=== PATIENT | male | born 1940 | race Caucasian/White ===

== ENCOUNTER → 2016-08-12 | Outpatient (CLI) | payer MEDICARE, BC ==
[2015-12-15 14:45] VITALS: BP 128/56
[~2016-08-12] MED LIST: ACET-1550 PO; ACET500T68 PO; AMLO10TA2 PO; ASPI-482 PO; ASPI81TA2 PO; CALC1TAB75 PO; DIPH25CA58 PO; FERR-26 PO; FLUO20CA8 PO; GLUC1TAB71 PO; HYDR-2762 PO; LISI40TA PO; LOVA20TA2 PO; LOVENOX SQ; MULT-404 PO; OMEG1CAP16 PO; OMEG1CAP38 PO; OMEP20CA9 PO; OXYC-323 PO; TRAM50TA PO; WARF2TAB7 PO; WARF5TAB7 PO; WARF7.5T6 PO
[2016-08-12 15:11] LABS: BILIRUBIN,URINE NEGATIVE (NEG); GLUCOSE,URINE NEGATIVE (NEG); NITRITE,URINE NEGATIVE (NEG); PROTEIN,URINE NEGATIVE (NEG-TRACE); UROBILINOGEN,URINE 0.2 mg/dL (0.2 mg/dL)
[2016-08-12 15:16] LABS: BASO # 0.1 x10^3/uL (0.0-0.2); BASO % 1 % (0-3); EOS % 8 % (0-3); HEMATOCRIT 39.2 % (39.0-53.0); HEMOGLOBIN 13.4 g/dL (13.0-17.5); LYMPH # 2.4 x10^3/uL (1.0-4.8); LYMPH % 28 % (24-48); MEAN CORPUSCULAR HEMOGLOBIN 33 pg (25-35); MEAN CORPUSCULAR HGB CONC 34 g/dL (31-37); MEAN CORPUSCULAR VOLUME 97 fL (79-100); MONO % 9 % (0-9); NEUT % 54 % (31-73); PLATELET COUNT 231 x10^3/uL (140-400); RED BLOOD COUNT 4.03 x10^6/uL (4.30-5.70); RED CELL DISTRIBUTION WIDTH 13.7 % (11.5-14.5); WHITE BLOOD COUNT 8.7 x10^3/uL (4.0-11.0)
--- NOTE | 2016-08-12 15:16 | EKG ---
[facility] [address] [place] [address] Test Date: 2016-08-12 Test Time: 15:18:53 Pat Name: COLE HARDY Department: Room: Gender: M Commercial Plumber: TINYVane : 1940 Requested By: SINDHU FOX Order Number: [id number] Reading MD: Елена Rodriguez Measurements Intervals [place] Rate: 53 P: 38 HI: 168 QRS: 5 QRSD: 78 T: 41 QT: 388 QTc: 366 Interpretive Statements SINUS RHYTHM ATRIAL PREMATURE COMPLEX(ES) OTHERWISE NORMAL ECG RI6.01 No previous ECG available for comparison Electronically Signed On 08-15-2016 12:37:23 CDT by Елена oRdriguez
[2016-08-12 15:33] LABS: INR 2.8 (0.8-1.1); PROTHROMBIN TIME PATIENT 27.4 SEC (11.7-14.0)
[2016-08-12 15:44] LABS: ALBUMIN 3.7 g/dL (3.4-5.0); CALCIUM 9.1 mg/dL (8.5-10.1); CREATININE 1.5 mg/dL (0.7-1.3); GFR 45.6; POTASSIUM 4.3 mmol/L (3.5-5.1)
[2016-08-12 15:46] LABS: BACTERIA,URINE 0 /HPF (0-FEW); RBC,URINE 0 /HPF (0-2); SQUAMOUS EPITHELIAL CELL,UR OCC /LPF; WBC,URINE RARE /HPF (0-4)
--- NOTE | 2016-08-12 16:21 | RAD ---
Indication preop. Anticipated shoulder surgery. PA and lateral views of the chest were obtained. Comparison is made to a study 08/14/2015. Heart size is unchanged. Pulmonary vasculature is normal. The lungs are clear of acute infiltrates. Significant pleural fluid is not present. There is no pneumothorax. A significant change when compared to the previous exam is not seen. IMPRESSION: No acute or focal process. No significant change.
== END | disposition home or self-care (01) ==
LOC: SURGPAT 14:10
PROVIDERS: ATTEND Orthopaedic Surgery Sports Medicine
DX: Z01.818 Encounter for other preprocedural examination (principal); M79.605 Pain in left leg; M19.011 Primary osteoarthritis, right shoulder
CPT/HCPCS: 36415; 71020; 80048; 81001; 82040; 85027; 85610; 85651; 85730; 87641; 93005

== ENCOUNTER 2016-08-26 08:17 | Inpatient (IN) | payer MEDICARE, BC ==
[~2016-08-26] VITALS: Ht 148.6 cm; Wt 111.1 kg
[~2016-08-26 08:17] MED LIST changes: +ASPI-630 PO; -ASPI81TA2 PO; +HYDROcodone/APAP 7.5/325MG 1 TAB TABLET PO PRN; +IV RINGERS,LACTATED 1000ML 1,000 ML IV SCH; +LIDOCAINE 1% 1 ML SYRINGE. ID PRN; +MELOXICAM 7.5 MG TABLET PO PRN; +MORPHINE SULFATE 5 MG, KETOROLAC TROMETHAMINE 30 MG, ROPIVacaine 0.5% PF 60 ML, EPINEPH... INT ART ONE; -OMEG1CAP16 PO; +OMEG1CAP27 PO; +VANCOMYCIN 1GM IVPB FOR OMNI 250 ML IV PRN
[2016-08-26] MEDS ORDERED: ROCURONIUM 50 MG/5 ML VIAL. ONE (08:31)
[2016-08-26] MEDS ORDERED: fentaNYL PF VIAL 100 MCG/2 ML VIAL ONE ×2 (08:31→09:11)
[2016-08-26] MEDS ORDERED: PROPOFOL 20 ML IV ONE (08:32)
[2016-08-26] MEDS ORDERED: DESFLURANE 61 TO 120 MINUTES IH ONE (08:32)
[2016-08-26] MEDS ORDERED: PHENYLEPHRINE 10 MG/ML VIAL. ONE (08:32)
[2016-08-26] MEDS ORDERED: LIDOCAINE 2% PF Vial for OR 5 ML VIAL. ONE (08:32)
[2016-08-26] MEDS ORDERED: ENOX40DI SQ (08:56)
[2016-08-26 09:08] VITALS: BP 158/81
[2016-08-26] MEDS ORDERED: DEXAMETHASONE SOD PHOS 20 MG/5 ML VIAL. ONE (09:10)
[2016-08-26] MEDS ORDERED: ROPIVacaine 0.5% PF 30 ML VIAL. ONE (09:11)
[2016-08-26] MEDS ORDERED: LIDOCAINE 2% 20 ML VIAL. ONE (09:11)
[2016-08-26] MEDS ORDERED: MIDAZOLAM HCL/PF 2 MG/2 ML VIAL. ONE (09:11)
[2016-08-26 09:36] LABS: INR 1.1 (0.8-1.1); PROTHROMBIN TIME PATIENT 13.4 SEC (11.7-14.0)
[2016-09-06] MEDS ORDERED: ACET-1550 PO (11:47)
[2016-09-06] MEDS ORDERED: GLUC-142 PO (11:47)
[2016-09-06] MEDS ORDERED: DIPH25CA58 PO (11:47)
[2016-09-06] MEDS ORDERED: WARF5TAB7 PO ×2 (11:47)
[2016-09-06] MEDS ORDERED: ACET500T68 PO (11:47)
--- NOTE | 2016-10-08 18:43 | SSS ---
ADMIT DATE: 08/26/2016 The patient was admitted to undergo total shoulder arthroplasty; however, due to the fact that the components were not available at our institution at that time, I discussed with him that we were not be able to perform a surgery and he agreed to this. Therefore, the surgery was re-scheduled for a later date when we are able to coordinate with the vendor on prior to availability. SINDHU FOX MD DR: MAYURI/[place] JOB#: [id number] / [id number]
== END 2016-08-26 09:53 | disposition home or self-care (01) | DRG 554 ==
LOC: EDSEX → OPSVCIP 08:17
PROVIDERS: ADMIT Orthopaedic Surgery Sports Medicine; ATTEND Orthopaedic Surgery Sports Medicine
DX: M19.011 Primary osteoarthritis, right shoulder (principal); Z53.9 Procedure and treatment not carried out, unspecified reason; Z88.8 Allergy status to other drugs, medicaments and biological substances; Z88.0 Allergy status to penicillin; Z88.5 Allergy status to narcotic agent
CPT/HCPCS: 36415; 85610; 85730; 86850; 86900; 86901; J0171; J1100; J1885; J2001; J2250; J2270; J2704; J2795; J3010; J7120

== ENCOUNTER 2016-09-09 10:43 | Inpatient (IN) | payer MEDICARE, BC ==
[2016-09-09] VITALS (7 sets, daily range): BP systolic 126–151; BP diastolic 54–74
[~2016-09-09] VITALS: Ht 172.7 cm; Wt 111.1 kg
[~2016-09-09 10:43] MED LIST changes: +ACETAMINOPHEN 500 MG TABLET PO PRN; +CLINDAMYCIN 600MG PREMIX 50 ML IV ONE; +ENOX40DI SQ; +GLUC-142 PO; -HYDROcodone/APAP 7.5/325MG 1 TAB TABLET PO PRN; +HYDROmorphone 2 MG/ML VIAL IV PRN; -IV RINGERS,LACTATED 1000ML 1,000 ML IV SCH; -MELOXICAM 7.5 MG TABLET PO PRN; +MEPERIDINE PF 25 MG/ML VIAL. IV PRN; +MIDAZOLAM HCL/PF 2 MG/2 ML VIAL. IV PRN; -MORPHINE SULFATE 5 MG, KETOROLAC TROMETHAMINE 30 MG, ROPIVacaine 0.5% PF 60 ML, EPINEPH... INT ART ONE; +PROCHLORPERAZINE 10 MG/2 ML VIAL. IV PRN; +TV=100ml MORPHINE 5 MG, KETOROLAC 30 MG, ROPIVacaine 0.5% PF 60 ML, EPINEPH... INT ART ONE; -VANCOMYCIN 1GM IVPB FOR OMNI 250 ML IV PRN; +diphenhydrAMINE 50 MG/ML VIAL IV PRN; +fentaNYL PF VIAL 100 MCG/2 ML VIAL IV PRN
[2016-09-09] MEDS ORDERED: PROPOFOL 20 ML IV ONE ×2 (10:49→14:26)
[2016-09-09] MEDS ORDERED: ONDANSETRON PF 4 MG/2 ML VIAL. ONE (10:49)
[2016-09-09] MEDS ORDERED: LIDOCAINE 2% PF Vial for OR 5 ML VIAL. ONE (10:49)
[2016-09-09] MEDS ORDERED: FAMOTIDINE 20 MG/2 ML VIAL ONE (10:49)
[2016-09-09] MEDS ORDERED: CALCIUM CARBONATE 500 MG TAB.CHEW PO PRN (11:00)
[2016-09-09] MEDS ORDERED: traMADol 50 MG TABLET PO PRN ×2 (11:00)
[2016-09-09] MEDS ORDERED: oxyCODONE/APAP 7.5/325 1 TAB TABLET PO PRN (11:00)
[2016-09-09] MEDS ORDERED: oxyCODONE/APAP 5/325 1 TAB TABLET PO PRN (11:00)
[2016-09-09] MEDS ORDERED: 0.9 % SODIUM CHLORIDE 10 ML DISP.SYRIN. IV PRN (11:00)
[2016-09-09] MEDS ORDERED: ACETAMINOPHEN 325 MG TABLET. PO PRN (11:00)
[2016-09-09] MEDS ORDERED: HYDROcodone/APAP 10/325 1 TAB TABLET PO PRN (11:00)
[2016-09-09] MEDS ORDERED: DEXTROSE 50% 25 GM / 50ML DISP.SYRIN. IV PRN (11:00)
[2016-09-09] MEDS ORDERED: ZOLPIDEM 5 MG TABLET. PO PRN (11:00)
[2016-09-09] MEDS ORDERED: BUPIVACAINE MPF 0.5% 30 ML VIAL. ONE (11:00)
[2016-09-09] MEDS ORDERED: PROCHLORPERAZINE 5 MG TABLET. PO PRN (11:00)
[2016-09-09] MEDS ORDERED: METOCLOPRAMIDE HCL 10 MG/2 ML VIAL. IV PRN (11:00)
[2016-09-09] MEDS ORDERED: VANCOMYCIN 1GM IVPB FOR OMNI 250 ML ONE (11:04)
[2016-09-09] MEDS ORDERED: VANCOMYCIN 1GM IVPB FOR OMNI. ONE (11:04)
[2016-09-09] MEDS ORDERED: MELOXICAM 7.5 MG TABLET PO ONE (11:04)
--- NOTE | 2016-09-09 11:11 | PDOC4 ---
Operative Note Operative Note Date of surgery 09/09/2016 Surgeon George Stock. Tracy Lua Anesthesia Gen. plus regional Preoperative diagnosis advanced right glenohumeral degenerative joint disease Postoperative diagnosis same; advanced rotator cuff tear Procedure performed right reverse total shoulder arthroplasty Components inserted DePuy delta extend metaglene Global unite porocoat standard stem, size 10 Delta extend size 1 epiphysis, eccentric Delta extend size 38 glenosphere Delta extend 38 +6 PE cup Estimated blood loss 300 mL Complications none Reason for procedure held is a very pleasant 76-year-old with severe and progressive right shoulder pain that was consistent with his above preoperative diagnosis on clinical and radiographic examination. He had tried and failed conservative therapy such as anti-inflammatories, rehabilitation, and intra- articular steroids. Despite these, his pain was still progressive and interfering with his activities of daily living. Therefore, we had a discussion of the risks, benefits, and alternatives to the above surgery and he elected to proceed. Description of procedure: Patient was greeted in the preoperative area by myself for the correct extremity was marked and verified. Was taken back to the operative suite and his antibiotics were started and row. Once in the OR he was transferred gently supine to the OR table. He had a regional nerve block placed by the anesthesiology team prior to coming back. Once on the OR table, he had successful induction of general anesthesia. We then set him up in a beachchair position and maintained his C-spine in a neutral position and had a large pad under his legs. He was secured to the bed. We then proceeded to prep and drape in her usual sterile fashion and conducted our standard preoperative timeout. I then palpated and marked surface anatomy and dominick a line from a standard deltopectoral skin incision. I incised skin with a scalpel and dissected subcutaneous tissue with electrocautery and Metzenbaums. Identified the deltopectoral interval and cephalic vein and only mobilize this laterally. Identified the clavipectoral fascia and incised this in line with the skin incision. I then placed my retractor. I then palpated for the biceps tendon and incised the bicipital sheath up into the rotator interval. His biceps had already ruptured and was scarred in place. I then proceeded to take down the subscapularis and placed tag stitches in it with electrocautery and progressive external rotation. I took time to remove the osteophytes anteriorly inferiorly and a little posteriorly as much as I was able to. I then inspected the humeral head and rotator cuff and felt the cuff tear and retraction nonamenable to a standard total shoulder procedure with a reverse.. I then gained entry to the humeral canal with the entry awl on hand power followed by sequential reaming until first bite.. I then placed my proximal humeral cut guide and pinned in position. I then made my proximal humeral cut and delivered the bone remnant from the operative field. This was sent to the back table for sizing. I next used the reamer in an eccentric position for the reverse body. After this I placed the broach and gently impacted in position. I was happy with my retroversion. I then removed the broach and directed my attention to placing my Fukuda and Bankart retractors and then excised the labrum. I released the capsule circumferentially around the glenoid and had good mobility. After this, I used my sizing guide to advance a pin and then reamed on hand power until had a punctate bleeding bony bed, I then drilled over this for my central peg. I did use the peripheral reamer as well. I then irrigated out the operative field. I then impacted my baseplate in place and secured it with locking screws and a nonlocking screw. I then redirected my attention to the proximal humerus after removing my glenoid retractors, I placed Darrach retractors. I then placed my trial stem. I reduced the shoulder after removing the retractors and tested range of motion and stability which I was happy with. After this, my stem was assembled on the back table and impacted in position. I then impacted and screwed the Glenosphere and position and then trialed various polyethylene insert sizes and felt the above combination gave the best range of motion and stability. I was easily able to reapproximate the subscapularis. I did this after drill holes were placed through the proximal humerus region and #2 Ethibond was shuttled around the humeral stem before I fully seated it. I then used these sutures to reapproximate my subscapularis and supplemented this at the interval with #2 Ethibond in a simple fashion. I then irrigated out the operative field again and placed my periarticular injection to the phil- incisional areas. I then close the deltopectoral interval with running 0 Vicryl. Inverted interrupted 20 was used for subcutaneous tissue and running 4- 0 Monocryl in a subcuticular fashion was used for the skin. Prior to accomplishing wound closure all culture were reported as correct 2. Patient tolerated surgery well. At the conclusion surgery was laid gently supine and transferred supine after the shoulder was cleansed and dried and the sling was applied. He was then taken to PACU in a stable and extubated condition. Postoperative plan is to admit him to the joint center. He'll be nonweightbearing. He will receive IV antibiotics. We will restart him on his home Coumadin and maintain him on Lovenox until he is therapeutic. SINDHU FOX II, MD Sep 09, 2016 11:11
[2016-09-09] MEDS ORDERED: ROCURONIUM 50 MG/5 ML VIAL. ONE (11:13)
[2016-09-09] MEDS ORDERED: fentaNYL PF VIAL 100 MCG/2 ML VIAL ONE (11:13)
[2016-09-09] MEDS: IV RINGERS,LACTATED 1000ML 1,000 ML IV SCH ×2 (11:15→13:00)
[2016-09-09 11:37] LABS: INR 1.2 (0.8-1.1)
[2016-09-09] MEDS ORDERED: GLYCOPYRROLATE 1 MG/5 ML VIAL. ONE (12:06)
[2016-09-09] MEDS ORDERED: ePHEDrine PF IN SALINE 50 MG/5 ML DISP.SYRIN IV ONE (12:07)
[2016-09-09] MEDS ORDERED: VASOPRESSIN 20 UNIT/ML VIAL. ONE (12:09)
[2016-09-09] MEDS ORDERED: VECURONIUM BOLUS 10 MG VIAL. IV ONE (13:25)
[2016-09-09] MEDS ORDERED: NEOSTIGMINE METHYLSULFATE 5 MG/5 ML SYRINGE. ONE (14:08)
[2016-09-09] MEDS ORDERED: SEVOFLURANE > 120 MINUTES. IH ONE (14:20)
--- NOTE | 2016-09-09 15:21 | RAD ---
Portable right shoulder, 2 views, 09/09/2016: History: Postop evaluation A reversed shoulder arthroplasty is in place. Several small periarticular calcifications or bone fragments are present. There is extensive hypertrophic degenerative change at the right acromioclavicular joint. There is no evidence of a retained surgical instrument, needle or radiopaque sponge on these 2 views. There is mild linear atelectasis in the right lung base.
[2016-09-09] MEDS: IV DEXTROSE 5 %-0.45 % NACL 1,000 ML IV SCH (17:17)
[2016-09-09] MEDS: CALCIUM CARB/VIT D3 500/200 TABLET. PO SCH (17:17)
[2016-09-09] MEDS: FERROUS SULFATE 325 MG TABLET. PO SCH (17:17)
[2016-09-09] MEDS ORDERED: WARFARIN 7.5 MG TABLET. PO ONE (17:30)
[2016-09-09] MEDS: diphenhydrAMINE HCL 25 MG CAPSULE PO SCH (20:54)
[2016-09-09] MEDS: ATORVASTATIN CALCIUM 10 MG TABLET. PO SCH (20:54)
[2016-09-09] MEDS: ENOXAPARIN 40 MG/0.4 ML SYRINGE. SQ SCH (20:55)
[2016-09-10] MEDS ORDERED: VANCOMYCIN 1 GM in IV NORMAL SALINE 250ML 250 ML IV ONE ×2
[2016-09-10 03:00] VITALS: BP 126/66
[2016-09-10] MEDS: IV DEXTROSE 5 %-0.45 % NACL 1,000 ML IV SCH ×3 (03:00→23:00)
[2016-09-10] MEDS: HYDROcodone/APAP 7.5/325MG 1 TAB TABLET PO PRN ×3 (04:07→17:12)
[2016-09-10] MEDS ORDERED: MAGNESIUM HYDROXIDE 2,400 MG/30 ML ORAL.SUSP. PO PRN (06:00)
[2016-09-10 06:51] VITALS: BP 131/66
[2016-09-10] MEDS: PANTOPRAZOLE 40 MG TABLET.DR. PO SCH (07:17)
[2016-09-10] MEDS: FERROUS SULFATE 325 MG TABLET. PO SCH ×2 (08:06→17:08)
[2016-09-10] MEDS: ASPIRIN ENTERIC COATED 81 MG TABLET.DR. PO SCH (08:06)
[2016-09-10] MEDS: SENNOSIDES/DOCUSATE 8.6/50MG TABLET. PO SCH (08:06)
[2016-09-10] MEDS: MULTIVITAMIN with MINERAL TABLET. PO SCH (08:06)
[2016-09-10] MEDS: FLUoxetine HCL 20 MG CAPSULE PO SCH (08:06)
[2016-09-10] MEDS: CALCIUM CARB/VIT D3 500/200 TABLET. PO SCH ×2 (08:06→17:08)
[2016-09-10] MEDS: ENOXAPARIN 40 MG/0.4 ML SYRINGE. SQ SCH ×2 (08:08→20:59)
[2016-09-10] MEDS: amLODIPine BESYLATE 10 MG TABLET PO SCH (08:10)
[2016-09-10] MEDS ORDERED: ENOXAPARIN 40 MG/0.4 ML SYRINGE. SQ SCH (09:00)
[2016-09-10] MEDS ORDERED: MULTIVITAMIN PO SCH (09:00)
--- NOTE | 2016-09-10 09:10 | PDOC ---
ORTHO PROGRESS NOTES Subjective Fingers "tingly", pain tolerable. Some urinary retention, improving. Vitals Vital Signs Date Time Temp Pulse Resp B/P (MAP) Pulse Ox O2 Delivery O2 Flow Rate FiO2 09/10/16 08:10 91 158/65 09/10/16 07:34 Room Air 09/10/16 06:51 98.6 20 97 98.6 09/09/16 17:50 2.0 Labs Laboratory Tests Test 09/09/16 11:09 09/09/16 14:55 09/09/16 17:11 09/09/16 20:41 Prothrombin Time 14.0 SEC (11.7-14.0) Prothromb Time International Ratio 1.2 (0.8-1.1) Activated Partial Thromboplast Time 35 SEC (24-38) Glucose (Fingerstick) 127 mg/dL (70-99) 148 mg/dL (70-99) 136 mg/dL (70-99) Test 09/10/16 06:36 Glucose (Fingerstick) 155 mg/dL (70-99) Laboratory Tests Test 09/09/16 11:09 09/09/16 14:55 09/09/16 17:11 09/09/16 20:41 Prothrombin Time 14.0 SEC (11.7-14.0) Prothromb Time International Ratio 1.2 (0.8-1.1) Activated Partial Thromboplast Time 35 SEC (24-38) Glucose (Fingerstick) 127 mg/dL (70-99) 148 mg/dL (70-99) 136 mg/dL (70-99) Test 09/10/16 06:36 Glucose (Fingerstick) 155 mg/dL (70-99) Notes A and A walking in hernandez motor intact m/r/u/a Assessment and Plan PT/OT coumadin and Lovenox has f/u at [place] friday for SINDHU Vazquez II, MD Sep 10, 2016 09:10
[2016-09-10 09:30] LABS: HEMATOCRIT 29.8 % (39.0-53.0); HEMOGLOBIN 10.5 g/dL (13.0-17.5)
[2016-09-10 12:47] LABS: INR 1.2 (0.8-1.1); PROTHROMBIN TIME PATIENT 14.1 SEC (11.7-14.0)
[2016-09-10] MEDS: TAMSULOSIN 0.4 MG CAP.ER.24H. PO SCH (13:24)
[2016-09-10] MEDS ORDERED: BISACODYL 10 MG SUPP.RECT. PR PRN (16:00)
[2016-09-10] MEDS ORDERED: WARFARIN 7.5 MG TABLET. PO ONE (16:00)
[2016-09-10 18:02] VITALS: BP 136/72
[2016-09-10] MEDS: ATORVASTATIN CALCIUM 10 MG TABLET. PO SCH (20:58)
[2016-09-10] MEDS: diphenhydrAMINE HCL 25 MG CAPSULE PO SCH (20:59)
[2016-09-11 06:00] VITALS: BP 130/56
[2016-09-11] MEDS: PANTOPRAZOLE 40 MG TABLET.DR. PO SCH (07:18)
[2016-09-11 07:34] LABS: INR 1.4 (0.8-1.1)
--- NOTE | 2016-09-11 08:42 | DISCH ---
DISCHARGE INSTRUCTIONS Condition on Discharge Condition on Discharge: Stable Activity After Discharge Activity Instructions for Disc: Other, see below Other activity instructions: arm to remain in sling Bathing Instructions: Shower-keep dressing dry Weight Bearing Status after Di: Non weight bearing Diet after Discharge Diet after Discharge: Regular Wound Incision Care Wound/Incision Care: Ice to area for comfort, Keep wound/cast CDI, Do not change dressing Contacting the DRAngela after DC Call your doctor for: Concerns you may have Follow-Up Follow up with: Haylie in 2wks Warfarin Follow-Up Warfarin Follow UP: Friday at [place] SINDHU FOX II, MD Sep 11, 2016 08:41
--- NOTE | 2016-09-11 08:43 | PDOC ---
ORTHO PROGRESS NOTES Subjective Pain doing well, some N, but tolerating diet. Vitals Vital Signs Date Time Temp Pulse Resp B/P (MAP) Pulse Ox O2 Delivery O2 Flow Rate FiO2 09/11/16 07:50 Room Air 09/11/16 06:00 98.6 76 20 130/56 (80) 94 98.6 09/10/16 19:49 2.0 Labs Laboratory Tests Test 09/09/16 11:09 09/09/16 14:55 09/09/16 17:11 09/09/16 20:41 Prothrombin Time 14.0 SEC (11.7-14.0) Prothromb Time International Ratio 1.2 (0.8-1.1) Activated Partial Thromboplast Time 35 SEC (24-38) Glucose (Fingerstick) 127 mg/dL (70-99) 148 mg/dL (70-99) 136 mg/dL (70-99) Test 09/10/16 06:36 09/10/16 08:43 09/10/16 16:55 09/10/16 20:46 Glucose (Fingerstick) 155 mg/dL (70-99) 118 mg/dL (70-99) 122 mg/dL (70-99) Hemoglobin 10.5 g/dL (13.0-17.5) Hematocrit 29.8 % (39.0-53.0) Mean Corpuscular Hemoglobin Concent 35 g/dL (31-37) Prothrombin Time 14.1 SEC (11.7-14.0) Prothromb Time International Ratio 1.2 (0.8-1.1) Test 09/11/16 06:30 09/11/16 06:55 Glucose (Fingerstick) 105 mg/dL (70-99) Prothrombin Time 16.0 SEC (11.7-14.0) Prothromb Time International Ratio 1.4 (0.8-1.1) Laboratory Tests Test 09/10/16 08:43 09/10/16 16:55 09/10/16 20:46 09/11/16 06:30 Hemoglobin 10.5 g/dL (13.0-17.5) Hematocrit 29.8 % (39.0-53.0) Mean Corpuscular Hemoglobin Concent 35 g/dL (31-37) Prothrombin Time 14.1 SEC (11.7-14.0) Prothromb Time International Ratio 1.2 (0.8-1.1) Glucose (Fingerstick) 118 mg/dL (70-99) 122 mg/dL (70-99) 105 mg/dL (70-99) Test 09/11/16 06:55 Prothrombin Time 16.0 SEC (11.7-14.0) Prothromb Time International Ratio 1.4 (0.8-1.1) Notes A and A dressing dry RUE in sling remains NVI Assessment and Plan ok to go home f/u with myself in 2wks, hold off on formal PT until then f/u at [place] friday SINDHU FOX II, MD Sep 11, 2016 08:43
[2016-09-11] MEDS: ENOXAPARIN 40 MG/0.4 ML SYRINGE. SQ SCH (08:52)
[2016-09-11] MEDS: ASPIRIN ENTERIC COATED 81 MG TABLET.DR. PO SCH (08:53)
[2016-09-11] MEDS: TAMSULOSIN 0.4 MG CAP.ER.24H. PO SCH (08:53)
[2016-09-11] MEDS: MULTIVITAMIN with MINERAL TABLET. PO SCH (08:55)
[2016-09-11] MEDS: SENNOSIDES/DOCUSATE 8.6/50MG TABLET. PO SCH (08:55)
[2016-09-11] MEDS: amLODIPine BESYLATE 10 MG TABLET PO SCH (08:55)
[2016-09-11] MEDS: FLUoxetine HCL 20 MG CAPSULE PO SCH (08:55)
[2016-09-11] MEDS: FERROUS SULFATE 325 MG TABLET. PO SCH (08:55)
[2016-09-11] MEDS: CALCIUM CARB/VIT D3 500/200 TABLET. PO SCH (08:55)
[2016-09-11] MEDS: HYDROcodone/APAP 7.5/325MG 1 TAB TABLET PO PRN (08:56)
[2016-09-11] MEDS: IV DEXTROSE 5 %-0.45 % NACL 1,000 ML IV SCH (09:00)
[2016-09-11 10:12] VITALS: BP 146/71
[2016-09-11 12:50] LABS: HEMATOCRIT 33.1 % (39.0-53.0); HEMOGLOBIN 10.9 g/dL (13.0-17.5)
--- NOTE | 2016-09-11 13:25 | PDOC3 ---
Discharge Summary Visit Information Date of Admission: Sep 09, 2016 Date of Discharge: Sep 11, 2016 Admitting Diagnosis: advanced right shoulder rotator cuff tear arthropathy Brief Hospital Course Allergies Allergies Coded Allergies Type Severity Reaction Last Updated Verified Penicillins Allergy Intermediate Swelling 09/09/16 Yes chlorhexidine Allergy Intermediate CLOTHS; RASH. TOLERATES SPONGES 09/09/16 No erythromycin base Adverse Reaction Intermediate Nausea and Vomiting 09/09/16 Yes morphine Adverse Reaction Intermediate nausea/vomiting 09/09/16 Yes tolmetin Adverse Reaction Intermediate 09/09/16 Yes Vital Signs Vital Signs Date Time Temp Pulse Resp B/P (MAP) Pulse Ox O2 Delivery O2 Flow Rate FiO2 09/11/16 10:12 99.1 87 18 146/71 (96) 94 Room Air 99.1 09/10/16 19:49 2.0 Lab Results Laboratory Tests Test 09/09/16 14:55 09/09/16 17:11 09/09/16 20:41 09/10/16 06:36 Glucose (Fingerstick) 127 mg/dL (70-99) 148 mg/dL (70-99) 136 mg/dL (70-99) 155 mg/dL (70-99) Test 09/10/16 08:43 09/10/16 16:55 09/10/16 20:46 09/11/16 06:30 Hemoglobin 10.5 g/dL (13.0-17.5) Hematocrit 29.8 % (39.0-53.0) Mean Corpuscular Hemoglobin Concent 35 g/dL (31-37) Prothrombin Time 14.1 SEC (11.7-14.0) Prothromb Time International Ratio 1.2 (0.8-1.1) Glucose (Fingerstick) 118 mg/dL (70-99) 122 mg/dL (70-99) 105 mg/dL (70-99) Test 09/11/16 06:55 Hemoglobin 10.9 g/dL (13.0-17.5) Hematocrit 33.1 % (39.0-53.0) Mean Corpuscular Hemoglobin Concent 33 g/dL (31-37) Prothrombin Time 16.0 SEC (11.7-14.0) Prothromb Time International Ratio 1.4 (0.8-1.1) Laboratory Tests Test 09/10/16 16:55 09/10/16 20:46 09/11/16 06:30 09/11/16 06:55 Glucose (Fingerstick) 118 mg/dL (70-99) 122 mg/dL (70-99) 105 mg/dL (70-99) Hemoglobin 10.9 g/dL (13.0-17.5) Hematocrit 33.1 % (39.0-53.0) Mean Corpuscular Hemoglobin Concent 33 g/dL (31-37) Prothrombin Time 16.0 SEC (11.7-14.0) Prothromb Time International Ratio 1.4 (0.8-1.1) Brief Hospital Course Mr. Dockery is a 76 old male who presented to my outpatient orthopedic surgery clinic with complaints of severe and progressive shoulder pain and interfering with his activities of daily living and loss of function especially range of motion. Clinical and radiographic workup were consistent with advanced glenohumeral degenerative joint disease and we had a discussion proceeding with arthroplasty based on the status of the cuff. He elected to proceed. He tolerated the reverse total shoulder replacement well and recovered well from anesthesia and the PACU. He is taken up to the joint center for care and observation as well as receive his DVT prophylaxis and antibiotic prophylaxis. We restarted him on his home dose of Coumadin and maintain him on his twice a day Lovenox bridge. His nerve block wore off but gave him good initial pain relief and after that his pain was controlled on oral pain medicine. He had some nausea, but was tolerating a regular diet. He is having normal bowel and bladder function. He remained afebrile and hemodynamically stable throughout his hospitalization. He made good progress with physical and occupational therapy and was maintaining his activities of daily living well Discharge Information Condition at Discharge: Stable Follow Up: Weeks Disposition/Orders: D/C to Home Scheduled Acetaminophen/Diphenhydramine (Acetaminophen-Diphenhyd 500-25), 1 EACH PO HS, ( Reported) Amlodipine Besylate (Amlodipine Besylate), 10 MG PO DAILY, (Reported) Aspirin (Aspir 81), 1 TAB PO DAILY, (Reported) Calcium Carbonate/Vitamin D3 (Calcium 600 + Vit D 200 Tablet), 1 EACH PO BID, ( Reported) Diphenhydramine Hcl (Benadryl), 25 MG PO HS, (Reported) Enoxaparin Sodium (Lovenox), 0.4 ML SQ DAILY, (Reported) Fluoxetine Hcl (Fluoxetine Hcl), 20 MG PO DAILY, (Reported) Glucosamine/D3/Boswellia Susannah (Osteo Bi-Flex Tablet), 1 EACH PO DAILY, ( Reported) Lovastatin (Lovastatin), 5 MG PO HS, (Reported) Multivitamin (Men's Multi-Vitamin), 1 EACH PO DAILY, (Reported) Hobson-3 Fatty Acids/Fish Oil (Fish Oil 1,000 Mg Softgel), 1 EACH PO BID, ( Reported) Omeprazole (Omeprazole), 20 MG PO DAILY, (Reported) Warfarin Sodium (Warfarin Sodium), 7.5 MG PO QTUTHSASU, (Reported) Warfarin Sodium (Warfarin Sodium), 5 MG PO QMWF, (Reported) Discontinued Medications Acetaminophen (Acetaminophen), 1,000 MG PO, (Reported) Diphenhydramine Hcl (Benadryl), 1 CAP PO QHS, (Reported) Lisinopril (Lisinopril), 40 MG PO DAILY, (Reported) Tramadol Hcl (Tramadol Hcl), 50 MG PO Q6H PRN for PAIN, (Reported) Patient Instructions Patient Instructions He is to be discharged, nonweightbearing right upper extremity. Right upper extremity is to remain in the sling. He is to work on gentle active assisted range of motion exercises as instructed to amount he was inpatient. He will maintain his Coumadin and Lovenox twice a day, [facility] We will see him back in 2 weeks in my outpatient clinic, sooner should a problem arise. SINDHU FOX II, MD Sep 11, 2016 13:25
--- NOTE | 2016-09-13 13:43 | PATHOLOGY ---
PATHOLOGY REPORT * * * * * * * * FINAL DIAGNOSIS: Humeral head and separate segments of bone, right total shoulder arthroplasty: - Advanced degenerative arthritis. (JPM:pit; 09/13/2016) REPORT ELECTRONICALLY SIGNED BY: Henry Pierce M.D. DATE/TIME: 09/13/2016 13:42 * * * * * * * * GROSS PATHOLOGY: The specimen is received in formalin labeled "Cole Castillo Jr., right shoulder tissue was ". Received is a dome-shaped segment of light vargas bone measuring 5.6 x 4.8 x 2.2 cm in greatest dimensions. The articulating surface is pale vargas to light vargas in appearance with evidence of eburnation. The specimen is submitted representatively in cassette A1, following decalcification. Also received within the specimen container are additional fragments of light vargas bone measuring 5.9 x 4.2 x 0.9 cm in aggregate dimensions. Sections are not submitted. (CAA; 09/12/2016) INITIAL CPT CODE(S): A; 19682, 27550 Professional services performed [place] [email or web address] [place] [address] Technical services performed by [email or web address] at [address] [place] [address] [address], [place] [address]. SPECIMEN(S) RECEIVED: A.Right shoulder tissue CLINICAL HISTORY: Right shoulder OA PATIENT: COLE CASTILLO JR /AGE: 5 1940 (Age: 76) PATIENT #: [id number] ALT CASE #: SPECIMEN COLLECTION DATE: 09/09/2016 SPECIMEN RECEIVED DATE: 09/11/2016 [facility] - [address] [place] [address] - PHONE: [phone] * * * END OF REPORT * * *
== END 2016-09-11 10:25 | disposition home or self-care (01) | DRG 483 ==
LOC: OPSVCIP 10:43 → 4 SOUTHEST 15:50
PROVIDERS: ADMIT Orthopaedic Surgery Sports Medicine; ATTEND Orthopaedic Surgery Sports Medicine
PROC: 0RRJ00Z Replacement of Right Shoulder Joint with Reverse Ball and Socket Synthetic Substitute, Open Approach (ICD-10-PCS; principal; 2016-09-09 12:15)
DX: M19.011 Primary osteoarthritis, right shoulder (principal); M75.101 Unspecified rotator cuff tear or rupture of right shoulder, not specified as traumatic; R33.9 Retention of urine, unspecified; Z88.1 Allergy status to other antibiotic agents; Z88.5 Allergy status to narcotic agent; Z88.0 Allergy status to penicillin; Z88.8 Allergy status to other drugs, medicaments and biological substances
CPT/HCPCS: 36415; 73030; 82962; 85014; 85018; 85610; 85730; 86850; 86900; 86901; A4215; J0171; J1650; J1885; J2270; J2405; J2704; J2710; J2765; J2795; J3010; J3370; J3490; J7030; J7050; J7120; Q0163; Q0164; S0028; 97110; 97116; 97530; 97535; C1769

== ENCOUNTER 2017-09-14 11:09 | Emergency (ER) | payer MEDICARE, BC ==
[2017-09-14 11:38] LABS: ADD MAN DIFF? NO
[2017-09-14 11:53] LABS: ANION GAP 4 (6-14); BLOOD UREA NITROGEN 23 mg/dL (8-26); BUN/CREATININE RATIO 14 (6-20); CALCIUM 9.3 mg/dL (8.5-10.1); CARBON DIOXIDE 29 mmol/L (21-32); CHLORIDE 102 mmol/L (98-107); CREATININE 1.6 mg/dL (0.7-1.3); GFR 42.2; GLUCOSE 163 mg/dL (70-99); POTASSIUM 4.2 mmol/L (3.5-5.1); SODIUM 135 mmol/L (136-145)
[2017-09-14 11:57] LABS: BASO # 0.1 x10^3/uL (0.0-0.2); BASO % 1 % (0-3); EOS # 0.3 x10^3/uL (0.0-0.7); EOS % 5 % (0-3); HEMATOCRIT 38.4 % (39.0-53.0); HEMOGLOBIN 13.1 g/dL (13.0-17.5); LYMPH # 1.6 x10^3/uL (1.0-4.8); LYMPH % 26 % (24-48); MEAN CORPUSCULAR HEMOGLOBIN 33 pg (25-35); MEAN CORPUSCULAR HGB CONC 34 g/dL (31-37); MEAN CORPUSCULAR VOLUME 96 fL (79-100); MONO # 0.3 x10^3/uL (0.0-1.1); MONO % 6 % (0-9); NEUT # 3.9 x10^3uL (1.8-7.7); NEUT % 63 % (31-73); PLATELET COUNT 208 x10^3/uL (140-400); RED BLOOD COUNT 3.99 x10^6/uL (4.30-5.70); WHITE BLOOD COUNT 6.1 x10^3/uL (4.0-11.0)
[2017-09-14 11:58] LABS: ALBUMIN 3.5 g/dL (3.4-5.0); ALBUMIN/GLOBULIN RATIO 0.9 (1.0-1.7); ALK PHOS 73 U/L (46-116); ALT (SGPT) 23 U/L (16-63); AST (SGOT) 19 U/L (15-37); BILIRUBIN,URINE NEGATIVE (NEG); CLARITY,URINE CLEAR; COLOR,URINE YELLOW; GLUCOSE,URINE NEGATIVE (NEG); LIPASE 181 U/L (73-393); NITRITE,URINE NEGATIVE (NEG); PROTEIN,URINE 30 mg/dL (NEG-TRACE); TOTAL BILIRUBIN 0.5 mg/dL (0.2-1.0); TOTAL PROTEIN 7.5 g/dL (6.4-8.2); UROBILINOGEN,URINE 0.2 mg/dL (0.2 mg/dL)
[2017-09-14 12:27] LABS: BACTERIA,URINE FEW /HPF (0-FEW); SQUAMOUS EPITHELIAL CELL,UR OCC /LPF; WBC,URINE RARE /HPF (0-4)
== END 2017-09-14 15:23 | disposition home or self-care (01) ==
LOC: ER 15:23
DX: S39.011A Strain of muscle, fascia and tendon of abdomen, initial encounter (principal); M54.89 Other dorsalgia; I10 Essential (primary) hypertension; E78.00 Pure hypercholesterolemia, unspecified; K21.9 Gastro-esophageal reflux disease without esophagitis; Z88.0 Allergy status to penicillin; Z88.1 Allergy status to other antibiotic agents; Z88.5 Allergy status to narcotic agent; Z88.8 Allergy status to other drugs, medicaments and biological substances; X58.XXXA Exposure to other specified factors, initial encounter; Y93.89 Activity, other specified; Y99.8 Other external cause status; Y92.89 Other specified places as the place of occurrence of the external cause
CPT/HCPCS: 36415; 74176; 76770; 80053; 81001; 83690; 85025; 99285-25

== ENCOUNTER → 2018-04-13 | Day surgery (SDC) | payer MEDICARE, BC ==
[~2018-04-13] VITALS: Ht 172.7 cm; Wt 114.8 kg
[~2018-04-13] MED LIST changes: -ACETAMINOPHEN 500 MG TABLET PO PRN; -AMLO10TA2 PO; +AMLO10TA6 PO; +BUPIVAC MPF-EPI 0.5%-1:200000 30 ML VIAL. ONE; -CLINDAMYCIN 600MG PREMIX 50 ML IV ONE; +DEXAMETHASONE SOD PHOS 20 MG/5 ML VIAL. ONE; +DOXA4TAB3 PO; -FERR-26 PO; +FERR325T14 PO; +GLYCOPYRROLATE 1 MG/5 ML VIAL. ONE; -HYDR-2762 PO; +HYDR-2765 PO; +HYDR-3164 PO; +HYDROcodone/APAP 5/325MG 1 TAB TABLET PO ONE; -HYDROmorphone 2 MG/ML VIAL IV PRN; +IV RINGERS,LACTATED 1000ML 1,000 ML IV SCH; -LIDOCAINE 1% 1 ML SYRINGE. ID PRN; +LIDOCAINE 1% PF 2 ML VIAL. ID PRN; +LIDOCAINE 2% PF Vial for OR 5 ML VIAL. ONE; +LISI-130 PO; -LISI40TA PO; -MEPERIDINE PF 25 MG/ML VIAL. IV PRN; -MIDAZOLAM HCL/PF 2 MG/2 ML VIAL. IV PRN; +NEOSTIGMINE 10 MG/10 ML VIAL. ONE; +ONDANSETRON PF 4 MG/2 ML VIAL. IV PRN; +ONDANSETRON PF 4 MG/2 ML VIAL. ONE; -OXYC-323 PO; +OXYC1TAB15 PO; -PROCHLORPERAZINE 10 MG/2 ML VIAL. IV PRN; +PROPOFOL 20 ML IV ONE; +ROCURONIUM 50 MG/5 ML VIAL. ONE; +SEVOFLURANE 61 TO 120 MINUTES. IH ONE; -TV=100ml MORPHINE 5 MG, KETOROLAC 30 MG, ROPIVacaine 0.5% PF 60 ML, EPINEPH... INT ART ONE; +WARF-31 PO; -WARF2TAB7 PO; +WARF2TAB96 PO; -WARF5TAB7 PO; +WARF7.5T45 PO; -WARF7.5T6 PO; -diphenhydrAMINE 50 MG/ML VIAL IV PRN; +fentaNYL PF VIAL 100 MCG/2 ML VIAL ONE
--- NOTE | 2018-04-13 09:02 | PDOC4 ---
Operative Note Operative Note Operative Note: Preoperative Diagnosis: Umbilical hernia Postoperative Diagnosis: Umbilical hernia Procedure: Umbilical hernia repair with mesh Surgeon: Demetris Anesthesia: Gen. EBL: 10 mL Specimen: None Drains: None Complications: None Indication: The patient is a 77 showed male who is referred with an enlarging umbilical hernia. He is interested in operative repair. The details and risks of surgery were discussed. The risks include bleeding, infection, recurrence, pain, anesthetic risk, potential need for additional surgery or procedure. He understands and would like to proceed. Description: The patient was taken to the operating room and placed supine on the operating table. Gen. anesthesia was performed. The abdomen was prepped with DuraPrep and draped in a standard surgical manner. A curved infraumbilical incision was made in the skin with a scalpel. Cautery dissection was carried down to the fascia. The umbilical tissue was elevated off the fascia exposing the hernia defect. A preperitoneal plane was developed circumferentially with cautery and blunt dissection. A medium sized Ventralex ST mesh was then placed in the defect. The mesh laid flat with good overlap in all directions. The mesh was sutured at the 12, 3, 6, 9:00 positions using 0 Prolene in a horizontal mattress fashion. The fascia was closed over the mesh with 0 Prolene. The umbilicus was secured back to the fascia with 0 Vicryl. The subcutaneous tissue was closed with 3-0 Vicryl and the skin was closed with 4-0 Monocryl. The incision was infiltrated with half percent Marcaine with epinephrine. Steri- Strips and a sterile dressing were applied. The patient tolerated the procedure well and was sent to the recovery room in stable condition. At the end of the case all counts were correct. LOUISE ESPINO MD Apr 13, 2018 09:02
--- NOTE | 2018-04-13 09:05 | DISCH ---
DISCHARGE INSTRUCTIONS Condition on Discharge Condition on Discharge: Stable Activity After Discharge Activity Instructions for Disc: Other, see below (no lifting over 20 lbs X 4 weeks) Driving Instructions after Dis: Other, see below (no driving if taking po pain meds) Diet after Discharge Diet after Discharge: Regular Wound Incision Care Wound/Incision Care: Other, see below (keep dressing clean and dry X 72 hours, may then remove and shower) Follow-Up Follow up with: Dr Espino in office in 2 weeks, call for appt [phone] LOUISE ESPINO MD Apr 13, 2018 09:05
[2018-04-13] MEDS: PROCHLORPERAZINE 10 MG/2 ML VIAL. IV PRN (10:20)
[2018-04-13 11:10] VITALS: BP 153/65
== END | disposition home or self-care (01) ==
LOC: SURG 06:08
PROVIDERS: ATTEND Surgery
DX: K42.9 Umbilical hernia without obstruction or gangrene (principal); Z79.82 Long term (current) use of aspirin; Z79.899 Other long term (current) drug therapy; I10 Essential (primary) hypertension; F41.9 Anxiety disorder, unspecified; E78.5 Hyperlipidemia, unspecified; Z87.19 Personal history of other diseases of the digestive system; Z86.718 Personal history of other venous thrombosis and embolism; Z96.641 Presence of right artificial hip joint; Z96.653 Presence of artificial knee joint, bilateral; Z98.1 Arthrodesis status; Z82.49 Family history of ischemic heart disease and other diseases of the circulatory system; Z83.6 Family history of other diseases of the respiratory system; Z87.891 Personal history of nicotine dependence; Z72.89 Other problems related to lifestyle; Z88.0 Allergy status to penicillin; Z88.1 Allergy status to other antibiotic agents; Z88.5 Allergy status to narcotic agent; Z88.8 Allergy status to other drugs, medicaments and biological substances; E66.9 Obesity, unspecified; Z68.38 Body mass index [BMI] 38.0-38.9, adult
CPT/HCPCS: 49585; 82962; A7015; C1781; J0780; J1100; J1956; J2001; J2405; J2704; J2710; J3010; J3490; J7120

== ENCOUNTER → 2019-02-26 | Outpatient (CLI) | payer MEDICARE, BC ==
[2018-04-13 11:10] VITALS: BP 153/65
[~2019-02-26] MED LIST changes: -ACET-1550 PO; +ACET-1797 PO; -AMLO10TA6 PO; +AMLO10TA8 PO; -BUPIVAC MPF-EPI 0.5%-1:200000 30 ML VIAL. ONE; -DEXAMETHASONE SOD PHOS 20 MG/5 ML VIAL. ONE; +FLUO20CA19 PO; -FLUO20CA8 PO; -GLYCOPYRROLATE 1 MG/5 ML VIAL. ONE; -HYDROcodone/APAP 5/325MG 1 TAB TABLET PO ONE; -IV RINGERS,LACTATED 1000ML 1,000 ML IV SCH; -LIDOCAINE 1% PF 2 ML VIAL. ID PRN; -LIDOCAINE 2% PF Vial for OR 5 ML VIAL. ONE; -NEOSTIGMINE 10 MG/10 ML VIAL. ONE; +OMEP-229 PO; -OMEP20CA9 PO; -ONDANSETRON PF 4 MG/2 ML VIAL. IV PRN; -ONDANSETRON PF 4 MG/2 ML VIAL. ONE; -PROPOFOL 20 ML IV ONE; -ROCURONIUM 50 MG/5 ML VIAL. ONE; -SEVOFLURANE 61 TO 120 MINUTES. IH ONE; -fentaNYL PF VIAL 100 MCG/2 ML VIAL IV PRN; -fentaNYL PF VIAL 100 MCG/2 ML VIAL ONE
--- NOTE | 2019-02-26 11:18 | CARD ---
MR#: [id number] Date of Study: 02/26/2019 Ordering Physician: BRAXTON BOSWELL, Referring Physician: BRAXTON BOSWELL, Tech: Lola Chen JAEL APPROVED REPORT EXAM: Two-dimensional and M-mode echocardiogram with Doppler and color Doppler. Other Information Quality : Good INDICATION Aortic Valve Disease 2D DIMENSIONS RVDd3.2 (2.9-3.5cm)Left Atrium(2D)4.3 (1.6-4.0cm) IVSd1.1 (0.7-1.1cm)Aortic Root(2D)3.1 (2.0-3.7cm) LVDd5.0 (3.9-5.9cm)LVOT Diameter2.3 (1.8-2.4cm) PWd1.0 (0.7-1.1cm)LVDs3.9 (2.5-4.0cm) FS (%) 27.0 %SV53.1 ml LVEF(%)55.0 (>50%) M-Mode DIMENSIONS Aortic Cusp Exc1.54 (1.5-2.0cm) Aortic Valve AoV Peak Eric.232.2cm/sAoV VTI53.1cm AO Peak GR.21.6mmHgLVOT Peak Eric.142.5cm/s LVOT VTI 34.48cmAO Mean GR.12mmHg PARTHA (VMAX)2.86gh9LVQ (VTI)2.81cm2 Mitral Valve MV E Vdsfpuga51.8cm/sMV DECEL EFBY472cc MV A Kczhxosp00.7cm/sMV LNY23oc E/A Ratio0.8MVA (PHT)2.69cm2 TDI E/Lateral E'9.0E/Medial E'13.6 Tricuspid Valve TR P. Ajuscxtk024ap/sRAP ITYNHXGZ2ahHd TR Peak Gr.52rjChRMAG20goQo Pulmonary Vein S1 Kldjckok54.9cm/sD2 Pqyxqqjx23.3cm/s LEFT VENTRICLE The left ventricle is normal size. There is normal left ventricular wall thickness. The left ventricu lar systolic function is normal. The Ejection Fraction is 55-60%. There is normal LV segmental wall m otion. Transmitral Doppler flow pattern is Grade I-abnormal relaxation pattern. RIGHT VENTRICLE The right ventricle is normal size. The right ventricular systolic function is normal. ATRIA The left atrium is mildly dilated. The right atrium size is normal. The interatrial septum is intact with no evidence for an atrial septal defect or patent foramen ovale as noted on 2-D or Doppler imagi ng. AORTIC VALVE The aortic valve is calcified and displays a slightly decreased opening. Doppler and Color Flow revea led trace aortic regurgitation. Calculated aortic valve area is 2.6 cm2 with maximum pressure gradien t of 22 mmHg and mean pressure gradient of 12 mmHg. MITRAL VALVE The mitral valve is normal in structure and function. There is no evidence of mitral valve prolapse. There is no mitral valve stenosis. Doppler and Color-flow revealed trace to mild mitral regurgitation . TRICUSPID VALVE The tricuspid valve is normal in structure and function. Doppler and Color Flow revealed mild tricusp id regurgitation. There is mild pulmonary hypertension. The PA pressure was estimated at 38 mmHg. The re is no tricuspid valve stenosis. PULMONIC VALVE The pulmonic valve is not well visualized. Doppler and Color Flow revealed no pulmonic valvular regur gitation. There is no pulmonic valvular stenosis. GREAT VESSELS The aortic root is normal in size. The ascending aorta is normal in size. The IVC is normal in size a nd collapses >50% with inspiration. PERICARDIAL EFFUSION There is no evidence of significant pericardial effusion. Critical Notification Critical Value: No <Conclusion> The left ventricular systolic function is normal. The Ejection Fraction is 55-60%. There is normal LV segmental wall motion. Transmitral Doppler flow pattern is Grade I-abnormal relaxation pattern. Trace to mild mitral regurgitation. Mild tricuspid regurgitation. There is mild pulmonary hypertension. The PA pressure was estimated at 38 mmHg. Signed by : Rogerio Patel, Electronically Approved : 02/26/2019 11:18:22
== END | disposition home or self-care (01) ==
LOC: ECHO 08:39 → MERGE 09:00
PROVIDERS: ATTEND Internal Medicine Cardiovascular Disease
DX: I08.3 Combined rheumatic disorders of mitral, aortic and tricuspid valves (principal)
CPT/HCPCS: 93306

== ENCOUNTER → 2020-07-05 | Outpatient (CLI) | payer MEDICARE, BC ==
[2018-04-13 11:10] VITALS: BP 153/65
[~2020-07-05] MED LIST changes: +AMLO-187 PO; -AMLO10TA8 PO; +CALC-627 PO; -CALC1TAB75 PO; -FLUO20CA19 PO; +FLUO20CA20 PO; -OMEP-229 PO; +OMEP20CA16 PO
--- NOTE | 2020-07-06 09:33 | CARD ---
MR#: [id number] Date of Study: 07/05/2020 Ordering Physician: BRAXTON BOSWELL, Referring Physician: BRAXTON BOSWELL, Tech: Lola Chen [facility] APPROVED REPORT EXAM: Two-dimensional and M-mode echocardiogram with Doppler and color Doppler. Other Information Quality : Good INDICATION Valvular Heart Disease 2D DIMENSIONS RVDd3.5 (2.9-3.5cm)Left Atrium(2D)3.7 (1.6-4.0cm) IVSd1.2 (0.7-1.1cm)Aortic Root(2D)2.9 (2.0-3.7cm) LVDd5.3 (3.9-5.9cm)LVOT Diameter2.1 (1.8-2.4cm) PWd1.2 (0.7-1.1cm)LVDs4.2 (2.5-4.0cm) FS (%) 20.6 %SV55.4 ml LVEF(%)41.6 (>50%) Aortic Valve AoV Peak Eric.275.8cm/sAoV VTI59.7cm AO Peak GR.30.4mmHgLVOT Peak Eric.159.9cm/s AO Mean GR.17mmHgAVA (VMAX)1.96cm2 PARTHA (VTI)2.10cm2 Mitral Valve MV E Onlwfwcm41.2cm/sMV DECEL CDGE242db MV A Xrbalqmh454.9cm/sE/A Ratio0.7 Tricuspid Valve TR P. Lcdkdkuu115vx/sRAP NRMGCYXH3bqAo TR Peak Gr.02hoBoIKQO81bcLe Pulmonary Vein S1 Hhjvepig04.4cm/sD2 Aiqlgxvs72.9cm/s LEFT VENTRICLE The left ventricle is normal size. There is mild concentric left ventricular hypertrophy. Left ventri josefa systolic function normal. The Ejection Fraction is 55-60%. There is normal LV segmental wall malik on. Transmitral Doppler flow pattern is Grade I-abnormal relaxation pattern. RIGHT VENTRICLE The right ventricle is normal size. The right ventricular systolic function is normal. ATRIA The left atrium size is normal. The right atrium is mildly dilated. The interatrial septum is intact with no evidence for an atrial septal defect or patent foramen ovale as noted on 2-D or Doppler imagi ng. AORTIC VALVE The aortic valve is calcified and displays decreased opening. Doppler and Color Flow revealed trace a ortic regurgitation. Calculated aortic valve area is 2.1 cm2 with maximum pressure gradient of 30 mmH g and mean pressure gradient of 17 mmHg. Doppler and color-flow analysis revealed mild aortic stenosi s. MITRAL VALVE The mitral valve is calcified but opens well. Mitral annular calcification is mild. There is no evide nce of mitral valve prolapse. There is no mitral valve stenosis. Doppler and Color-flow revealed mild mitral regurgitation. TRICUSPID VALVE The tricuspid valve is normal in structure and function. Doppler and Color Flow revealed mild tricusp id regurgitation. There is mild pulmonary hypertension. The PA pressure was estimated at 33 mmHg. The re is no tricuspid valve stenosis. PULMONIC VALVE The pulmonic valve is not well visualized. Doppler and Color Flow revealed mild pulmonic valvular reg urgitation. There is no pulmonic valvular stenosis. GREAT VESSELS The aortic root is normal in size. The ascending aorta is mildly dilated at 3.7 cm. The IVC is normal in size and collapses >50% with inspiration. PERICARDIAL EFFUSION There is no evidence of significant pericardial effusion. Critical Notification Critical Value: No <Conclusion> Left ventricle systolic function normal. The Ejection Fraction is 55-60%. There is normal LV segmental wall motion. Transmitral Doppler flow pattern is Grade I-abnormal relaxation pattern. Mild aortic stenosis. Mld mitral regurgitation. Mild tricuspid regurgitation. The PA pressure was estimated at 33 mmHg. There is no evidence of significant pericardial effusion. Signed by : Rogerio Patel, Electronically Approved : 07/06/2020 09:32:38
== END ==
LOC: ECHO 12:40
PROVIDERS: ATTEND Internal Medicine Cardiovascular Disease
DX: I08.8 Other rheumatic multiple valve diseases (principal)
CPT/HCPCS: 93306

== ENCOUNTER → 2021-02-22 | Day surgery (SDC) | payer MEDICARE ==
[~2021-02-22] VITALS: Ht 172.7 cm; Wt 111.0 kg
[~2021-02-22] MED LIST changes: +APIX5TAB PO; -FLUO20CA20 PO; +FLUO20CA22 PO; +IV RINGERS,LACTATED 1000ML 1,000 ML IV SCH; +PROPOFOL 10 MG/ML (20ML) VIAL. IV ONE
[2021-02-22 09:49] VITALS: BP 162/78
[2021-02-22 10:50] VITALS: BP 155/69
--- NOTE | 2021-02-22 11:04 | PREOP HP ---
DATE OF SERVICE: 02/22/2021 REQUESTING PHYSICIAN: Cornelia Gates MD PRIMARY CARE PHYSICIAN: Cornelia Gates MD REASON FOR PROCEDURE: History of polyps. HISTORY OF PRESENT ILLNESS: This is a 80-year-old gentleman who presents for colonoscopy. His last colonoscopy was in 01/2016 where he was found to have two tubular adenomas at the hepatic flexure. He is to undergo colonoscopy for further evaluation. The risks and benefits of the procedure were explained. ALLERGIES: 1. PENICILLIN. 2. MORPHINE. 3. ERYTHROMYCIN. 4. TOLECTIN. PAST MEDICAL HISTORY: Blood clots and colon polyps. MEDICATIONS: MAR reviewed. He was on Eliquis. We asked him to hold it for 5 days. [facility] sent a letter saying that he was adequate, so he has been off of that for 2 days. SOCIAL HISTORY: He is a former smoker. He has remote alcohol and denies IV drug abuse. FAMILY MEDICAL HISTORY: No colon cancer. REVIEW OF SYSTEMS: A 13-point review of systems was done is positive as per HPI and otherwise negative. PHYSICAL EXAMINATION: GENERAL: He is an elderly, ill-appearing male in no apparent distress. HEENT: Oropharynx is clear. CARDIOVASCULAR: S1, S2. LUNGS: Clear. ABDOMEN: Obese, soft, nontender, nondistended. EXTREMITIES: No edema. NEUROLOGIC: Awake, oriented x 3. ASSESSMENT AND PLAN: History of polyps. The risks and benefits of the procedure including bleeding, perforation, nondiagnosis and sedation were explained. He agreed to proceed. LOVELY/SHIMON DR: Onur TID: [id number]
--- NOTE | 2021-02-26 17:06 | PATHOLOGY ---
[facility] Accession Number: [id number] . 01 Material submitted: . PART A: cecum - CECAL POLYP PART B: ileo-cecal valve - ILEOCECAL VALVE POLYP PART C: rectosigmoid junction - RECTOSIGMOID POLYPS . 01 Clinical history: . HX POLYPS COLONOSCOPY . 02 Diagnosis: A. Colon biopsies, cecal polyp: - Tubular adenoma. . B. Colon biopsy, ileocecal valve polyp: - Prominent mucosal fold. . C. Colorectal biopsies, rectosigmoid polyps: - Hyperplastic polyps. ([facility]; 02/26/2021) [facility] 02/26/2021 1627 Local . 02 Comment: There is no high-grade dysplasia or evidence of malignancy. ([facility]; 02/26/2021) . 02 Electronically signed: . Henry Pierce MD, Pathologist NPI- [id number] . 01 Gross description: . A. The specimen is received in formalin, labeled "Newcomer Hostess Jr, Eulogio, cecal polyp". Received are multiple segments of pale vargas tissue ranging in size from 0.1 cm to 0.4 cm in maximum dimensions. The specimen is submitted entirely in cassette A1. . B. The specimen is received in formalin, labeled "Newcomer Hostess Jr, Eulogio, ileo-cecal valve polyp". Received is a segment of pale vargas tissue measuring 0.4 cm in maximum dimensions. The specimen is submitted entirely in cassette B1. . C. The specimen is received in formalin, labeled "Newcomer Hostess Jr, Eulogio, rectal-sigmoid colon polyps". Received are multiple segments of pale vargas tissue ranging in size from 0.3 to 0.4 cm in maximum dimensions. The specimen is submitted entirely in cassette C1.([facility]; 02/23/2021) [facility] 02/23/2021 1320 Local . 02 Pathologist provided ICD-10: D12.0, K62.1, Z86.010, Z12.11 . 02 CPT . 434926, [id number], [id number] Specimen Comment: A courtesy copy of this report has been sent to [phone], [phone] Specimen Comment: [id number] Specimen Comment: Report sent to / DR JONES Specimen Comment: A duplicate report has been generated due to demographic updates. Performed at: 01 [facility] [address] [facility] [address], [place] [id number] MD Tylor Jacob MD Phone: [phone] Performed at: 02 [facility] [address] [place], [place] [id number] MD Henry Pierce MD Phone: [phone]
== END | disposition home or self-care (01) ==
LOC: EDSEX → SURG 09:16 → MERGE 10:30
PROVIDERS: ATTEND Internal Medicine Gastroenterology
DX: Z12.11 Encounter for screening for malignant neoplasm of colon (principal); D12.0 Benign neoplasm of cecum; K63.89 Other specified diseases of intestine; K64.0 First degree hemorrhoids; K57.30 Diverticulosis of large intestine without perforation or abscess without bleeding; I12.9 Hypertensive chronic kidney disease with stage 1 through stage 4 chronic kidney disease, or unspecified chronic kidney disease; N18.2 Chronic kidney disease, stage 2 (mild); E78.00 Pure hypercholesterolemia, unspecified; G47.30 Sleep apnea, unspecified; E11.22 Type 2 diabetes mellitus with diabetic chronic kidney disease; M19.90 Unspecified osteoarthritis, unspecified site; K21.9 Gastro-esophageal reflux disease without esophagitis; Z86.010 Personal history of colon polyps; Z79.899 Other long term (current) drug therapy; Z98.890 Other specified postprocedural states; Z88.1 Allergy status to other antibiotic agents; Z88.0 Allergy status to penicillin; Z88.8 Allergy status to other drugs, medicaments and biological substances; Z88.6 Allergy status to analgesic agent; Z82.49 Family history of ischemic heart disease and other diseases of the circulatory system
CPT/HCPCS: 45380; 88305; J2704; 45384

== ENCOUNTER → 2021-07-04 | Outpatient (CLI) | payer MEDICARE ==
[2021-02-22 10:50] VITALS: BP 155/69
[~2021-07-04] MED LIST changes: -IV RINGERS,LACTATED 1000ML 1,000 ML IV SCH; -PROPOFOL 10 MG/ML (20ML) VIAL. IV ONE
--- NOTE | 2021-07-05 10:00 | KCIC ---
MR LUMBAR SPINE WO [id number] History: Reason: BILATERAL LEG WEAKNESS / Spl. Instructions: / History: Worsening BLE weakness in re cent years. Previous surgery . Technique: Multiplanar, multi sequential MR imaging was performed of the lumbar spine. Comparison: CT September 14, 2017 Findings: Significantly degraded evaluation due to susceptibility artifact from hardware. Posterior stabilizati on L3-S1. Evaluation of the L3-L5 vertebral bodies and upper sacrum is extremely degraded. No definit e acute fracture in the imaged spine. Grade 1 anterolisthesis L5 on S1 poorly characterized. Conus terminates at the normal location. No evidence of nerve root clumping. Bilateral renal cysts. Fluid collection within the right posterior ilium measures 2.9 x 0.9 cm. T10-T11: Small disc bulge. Mild canal narrowing. Facet arthropathy. Moderate bilateral neuroforaminal narrowing. T11-T12: Grade 1 anterolisthesis. Disc bulge and disc extrusion extending superiorly. Moderate canal narrowing with cord flattening. Moderate facet arthropathy. Mild bilateral neuroforaminal narrowing. T12-L1: Central disc protrusion. Mild to moderate canal narrowing. Facet arthropathy. Mild right neur oforaminal narrowing. L1-L2: Posterior disc osteophyte complex. Mild canal narrowing. Facet arthropathy. Mild bilateral ne uroforaminal narrowing. L2-L3: Significantly degraded. L3-L4: Significantly degraded. L4-L5: Significantly degraded. L5-S1: Significantly degraded. Impression: 1. Significantly degraded evaluation due to lumbar hardware. CT myelogram can further assess if clin ically indicated. 2. Fluid collection within the right posterior ilium, may relate to prior postoperative changes. Rec ommend clinical correlation. 3. Multilevel thoracolumbar spondylosis. 4. Moderate canal narrowing T11-T12. 5. Multilevel neuroforaminal narrowing. Electronically signed by: Elia Joe DO (07/05/2021 9:58 AM) [id number]
--- NOTE | 2021-07-05 11:40 | KCIC ---
ANKLE BRACHIAL INDEX Indication: Bilateral leg weakness, claudication, significant smoking history, hypertension Comparison: None. Procedure: Arterial pressures are measured in the arms and ankles. Findings: Right ankle: 163 mm Hg. Right arm: : 153 mm Hg. Left ankle: 166 mm Hg. Left arm: 163 mm Hg. Right leg MARIA ISABEL 1.0 Left leg MARIA ISABEL 1.0 IMPRESSION: Normal ankle brachial indices Electronically signed by: Deny Myers MD (07/05/2021 11:37 AM) [id number]
== END ==
LOC: KCIC MRI 14:21
PROVIDERS: ATTEND Internal Medicine
DX: M47.815 Spondylosis without myelopathy or radiculopathy, thoracolumbar region (principal); M51.25 Other intervertebral disc displacement, thoracolumbar region; M48.05 Spinal stenosis, thoracolumbar region; M25.78 Osteophyte, vertebrae; I73.9 Peripheral vascular disease, unspecified; N28.1 Cyst of kidney, acquired
CPT/HCPCS: 72148; 93922